=== PATIENT | male | born 1965 | race African-American/Black ===

== ENCOUNTER 2017-02-22 12:16 | Inpatient (IN) | payer OTHER ==
[~2017-02-22] VITALS: Ht 170.2 cm; Wt 69.0 kg
[~2017-02-22 12:16] MED LIST: A/B OTIC15 ML; DILAUDID2 MG PO; ELA25 PO; FENTANYL TR50 MCG/H1 TOP; FERROUS SULFAT325 M2 PO; ONDANSETRON4 M3 PO; PAN PO; PHENERGAN12.5 M1; PRO40 PO; REG10 PO; THO10; XARELTO10 M1 PO; ZOFRAN ODT8 MG PO
[2017-02-22 14:37] LABS: CALCIUM 8.9 mg/dL (8.5-10.1); CARBON DIOXIDE 24.6 mmol/L (21-32); CHLORIDE SERUM 94 mmol/L (98-107); CREATININE SERUM 1.3 mg/dL (0.7-1.3); GFR1 > 60 mL/min; GLUCOSE SERUM 197 mg/dL (74-106); POTASSIUM SERUM 3.4 mmol/L (3.5-5.1); SODIUM SERUM 131 mmol/L (136-145)
[2017-02-22 14:42] LABS: ALBUMIN 3.9 g/dL (3.4-5.0); ALKALINE PHOSPHATASE 176 U/L (46-116); ALT/SGPT 65 U/L (16-63); AST/SGOT 24 U/L (15-37); BILIRUBIN TOTAL 0.56 mg/dL (0.20-1.00); TOTAL PROTEIN, SERUM 7.4 g/dL (6.4-8.2)
[2017-02-22 14:54] LABS: PLATELET COUNT 227 x10^3mcL (130-400)
[2017-02-22 15:02] LABS: RED CELL DISTRIBUTION WIDTH 23.8 % (11.5-14.5)
[2017-02-22 15:08] LABS: BAND NEUTROPHIL 3 % (0-10); BASOPHIL 0 % (0-2); MONOCYTE 3 % (0-7); SEGMENTED NEUTROPHILS 85 % (37-75)
[2017-02-22 15:09] LABS: rbc morphology (normal/abnorm) ABNORMAL (NORMAL)
[2017-02-22] MEDS ORDERED: KETAMINE PO (15:37)
[2017-02-22] MEDS ORDERED: METHADONE HCL10 MG PO (15:37)
[2017-02-22] MEDS ORDERED: DILAUDID2 MG PO (15:39)
[2017-02-22 16:13] LABS: microscopic required? NO
[2017-02-22 16:30] LABS: UA SPECIFIC GRAVITY <=1.005 (1.005-1.035); urine erythrocyte NEGATIVE (NEGATIVE)
[2017-02-22 17:07] LABS: MAGNESIUM 1.4 mg/dL (1.8-2.4); PHOSPHOROUS 2.2 mg/dL (2.5-4.9)
[2017-02-22 17:08] LABS: CHOLESTEROL/HDL RATIO 2.3
[2017-02-22 17:21] LABS: T3 TOTAL 0.75 ng/mL
[2017-02-22 17:23] VITALS: BP 157/97
[2017-02-22 17:37] VITALS: Ht 170.2 cm; Wt 69.0 kg
[2017-02-22 17:39] LABS: FREE T4 0.93 ng/dL (0.76-1.46); FREE THYROXINE INDEX 2.3 ug/dL (1.4-4.5); T4(THYROXINE) 6.6 ug/dL (4.7-13.3)
[2017-02-22 18:48] LABS: AMPHETAMINE QUAL UR NONE DETECTED (NEG <=1000)
[2017-02-22 21:34] VITALS: BP 127/74
[2017-02-23 06:01] VITALS: BP 139/89
[2017-02-23 10:44] VITALS: BP 141/101
[2017-02-23 12:18] VITALS: BP 141/104
== END 2017-02-23 13:31 | disposition left against medical advice (07) | DRG 243 ==
LOC: ED 12:16 → DU 15:58 → MU 15:58 → DU 17:12 → MU 02-23 08:35
PROVIDERS: Emergency Medicine; ADMIT Family Medicine
DX: K22.0 Achalasia of cardia (principal); N17.0 Acute kidney failure with tubular necrosis; E44.0 Moderate protein-calorie malnutrition; E11.9 Type 2 diabetes mellitus without complications; I10 Essential (primary) hypertension; D63.8 Anemia in other chronic diseases classified elsewhere; F32.9 Major depressive disorder, single episode, unspecified; K21.9 Gastro-esophageal reflux disease without esophagitis; E83.42 Hypomagnesemia; E87.6 Hypokalemia; G89.29 Other chronic pain; G47.00 Insomnia, unspecified; K44.9 Diaphragmatic hernia without obstruction or gangrene; N40.0 Benign prostatic hyperplasia without lower urinary tract symptoms; E87.1 Hypo-osmolality and hyponatremia; Z68.23 Body mass index [BMI] 23.0-23.9, adult; Z79.891 Long term (current) use of opiate analgesic; Z86.718 Personal history of other venous thrombosis and embolism; Z90.49 Acquired absence of other specified parts of digestive tract; Z82.49 Family history of ischemic heart disease and other diseases of the circulatory system; Z88.8 Allergy status to other drugs, medicaments and biological substances
CPT/HCPCS: 80307; 83880; 84439; C9113; J0696; J1170; J2405; J2550; J2765; J3010; J3475; J3480; J7030; Q0092; Q0161

== ENCOUNTER 2017-03-06 06:14 | Emergency (ER) | payer OTHER ==
[~2017-03-06 06:14] MED LIST changes: +KETAMINE PO; +METHADONE HCL10 MG PO
[2017-03-06 07:21] LABS: BASOPHIL % 0.2 % (0-2); PLATELET COUNT 230 x10^3mcL (130-400)
[2017-03-06 07:25] LABS: RED CELL DISTRIBUTION WIDTH 23.6 % (11.5-14.5)
[2017-03-06 07:35] LABS: ALKALINE PHOSPHATASE 178 U/L (46-116); ALT/SGPT 126 U/L (16-63); AMYLASE 81 U/L (25-115); AST/SGOT 52 U/L (15-37); BILIRUBIN TOTAL 0.58 mg/dL (0.20-1.00); CALCIUM 8.6 mg/dL (8.5-10.1); CARBON DIOXIDE 24.7 mmol/L (21-32); CHLORIDE SERUM 100 mmol/L (98-107); CREATININE SERUM 0.9 mg/dL (0.7-1.3); GFR1 > 60 mL/min; GLUCOSE SERUM 128 mg/dL (74-106); LIPASE 254 IU/L (73-393); SODIUM SERUM 136 mmol/L (136-145); TOTAL PROTEIN, SERUM 7.4 g/dL (6.4-8.2)
[2017-03-06 10:49] VITALS: BP 152/97
== END 2017-03-06 10:49 | disposition home or self-care (01) ==
LOC: ED 06:14
PROVIDERS: Emergency Medicine
DX: G89.29 Other chronic pain (principal); R10.9 Unspecified abdominal pain; R11.10 Vomiting, unspecified; Z88.8 Allergy status to other drugs, medicaments and biological substances
CPT/HCPCS: 83880; J0780; J1200; J1630; J2765; J3010; J3230; J3480; J3490; J7030

== ENCOUNTER 2017-04-21 14:40 | Inpatient (IN) | payer OTHER ==
[~2017-04-21] VITALS: Ht 170.2 cm; Wt 69.9 kg
[~2017-04-21 14:40] MED LIST changes: +DILAUDID2 MG IV; +KETAMINE IV; -KETAMINE PO; +METHADONE HCL10 MG IV; -METHADONE HCL10 MG PO
--- NOTE | 2017-04-21 14:44 | NUR ---
PT C/O RUQ ABD PAIN. [facility] NURSE ADVISED TO BE SEEN IN ED DUE TO LOW BP, LETHARGY AND ABD PAIN. PT HAS PICC LINE TO RT AC. PATENT. NO S/S OF INFECTION NOTED. DR. BURNS AT BEDSIDE FOR MSE. NO ABD DISTENTION NOTED. PT GUARDED TO RUQ ABD. COMFORT MEASURES IMPLEMENTED. CALL LIGHT W/IN REACH. WILL CONTINUE TO MONITOR.
[2017-04-21 15:22] LABS: microscopic required? NO
[2017-04-21 15:36] LABS: CALCIUM 8.5 mg/dL (8.5-10.1); CARBON DIOXIDE 25.2 mmol/L (21-32); CREATININE SERUM 1.4 mg/dL (0.7-1.3); POTASSIUM SERUM 3.2 mmol/L (3.5-5.1)
[2017-04-21 15:37] LABS: PLATELET COUNT 162 x10^3mcL (130-400)
[2017-04-21 15:39] LABS: urine erythrocyte NEGATIVE (NEGATIVE)
--- NOTE | 2017-04-21 15:39 | NUR ---
MEDICATED ORDERED. PLEASE SEE EMR.
[2017-04-21 15:41] LABS: ALBUMIN 3.6 g/dL (3.4-5.0); BILIRUBIN TOTAL 0.3 mg/dL (0.20-1.00); TOTAL PROTEIN, SERUM 6.9 g/dL (6.4-8.2)
[2017-04-21 15:43] LABS: RED CELL DISTRIBUTION WIDTH 24.2 % (11.5-14.5)
[2017-04-21 15:54] LABS: BASOPHIL 1 % (0-2); MONOCYTE 9 % (0-7); SEGMENTED NEUTROPHILS 66 % (37-75); rbc morphology (normal/abnorm) ABNORMAL (NORMAL)
--- NOTE | 2017-04-21 17:11 | NUR ---
PT MEDICATED ORDERED BY BINTA TRAN. PLEASE SEE EMR.
--- NOTE | 2017-04-21 17:21 | NUR ---
REPORT GIVEN TO BINTA MELO FOR CONTINUATION OF CARE PRIMARY RN.
--- NOTE | 2017-04-21 17:23 | NUR ---
REPORT GIVEN TO BINTA MELO FOR CONTINUATION OF CARE PRIMARY RN.
--- NOTE | 2017-04-21 17:45 | NUR ---
PT ARRIVED ON THE UNIT VIA GUERNEY, ESCORTED BY ER STAFF, WITH IV FLUIDS INFUSING @100 ML/HR. PT IS A+OX4, COMPLAINING OF NAUSEA AND PAIN 07/25.
--- NOTE | 2017-04-21 17:54 | NUR ---
PT TRANSFERED VIA GURNEY ACCOMPANIED BY NURSE AND EMT. PAINTING SUPERVISOR ATTACHED. VSS. RESPS E/U. NO S/S OF DISTRESS NOTED.
--- NOTE | 2017-04-21 17:54 | NUR ---
BINTA MELO NOTIFIED OF CRITICAL RESULT OF LACTIC ACID.
--- NOTE | 2017-04-21 18:11 | NUR ---
PT COMPLAINING OF 9/10 PAIN AND NAUSEA. ZOFRAN AND NAUSEA GIVEN.
[2017-04-21 18:13] VITALS: BP 137/90
[2017-04-21 18:38] LABS: FREE T4 1.25 ng/dL (0.76-1.46); FREE THYROXINE INDEX 3.7 ug/dL (1.4-4.5); T4(THYROXINE) 10.1 ug/dL (4.7-13.3)
[2017-04-21 18:41] LABS: CK-MB 0.8 ng/mL (0-3.6)
[2017-04-21 18:47] LABS: MAGNESIUM 1.8 mg/dL (1.8-2.4); PHOSPHOROUS 3.9 mg/dL (2.5-4.9)
[2017-04-21 18:51] LABS: T3 TOTAL 1.11 ng/mL
[2017-04-21 19:06] LABS: CHOLESTEROL/HDL RATIO 2.5
--- NOTE | 2017-04-21 19:43 | NUR ---
RECEIVED PT FROM AM NURSE IN NO ACUTE DISTRESS, A/OX4. TELE #5 SR HR 87, PULSES PALPABLE , NO EDEMA NOTED. LUNGS CLEAR ON RA. BS ACTIVE X4 QUADRANTS. REPORTS ABD PAIN, WILL MEDICATE PER EMAR, VOIDS FREELY, AMBULATORY, SKIN WARM DRY AND INTACT, PICC LINE TO RAC RECEIVING NS AT 100 ML/HR, ALL PORTS PATENT, BED IN LOWEST POSITION, CALL LIGHT INSTRUCTIONS REINFORCED, WILL CONT TO MONITOR.
[2017-04-21 19:56] LABS: AMPHETAMINE QUAL UR NONE DETECTED (NEG <=1000)
--- NOTE | 2017-04-21 20:35 | NUR ---
C/O ABD PAIN7/10, DILAUDID ADMINSTERED PRESCRIBED, WILL CONT TO MONITOR.
[2017-04-21 20:52] LABS: CALCIUM 8.1 mg/dL (8.5-10.1); CARBON DIOXIDE 29.1 mmol/L (21-32); CHLORIDE SERUM 102 mmol/L (98-107); CREATININE SERUM 1.1 mg/dL (0.7-1.3); GFR1 > 60 mL/min; GLUCOSE SERUM 88 mg/dL (74-106); POTASSIUM SERUM 3.6 mmol/L (3.5-5.1); SODIUM SERUM 137 mmol/L (136-145)
--- NOTE | 2017-04-21 21:33 | NUR ---
C/O NAUSEA, PHENERGAN ADMINISTERED PRESCRIBED, WILL CONT TO MONITOR..
[2017-04-21 21:48] VITALS: BP 120/69
--- NOTE | 2017-04-21 23:33 | NUR ---
C/O ABD PAIN 8/10 AND NAUSEA, DILAUDID AND ZOFRAN ADMINISTERED PRESCRIBED, WILL CONT TO MONITOR.
[2017-04-22 05:41] VITALS: BP 131/94
--- NOTE | 2017-04-22 06:01 | NUR ---
REMAINS IN STABLE CONDITION, MEDICATED FOR PAIN THROUGHOUT SHIFT PRESCRIBED, ALL NEEDS MET AND ATTENDED TO, WILL CONT TO MONITOR AND ENDORSE ALL CARE TO ONCOMING NURSE.
[2017-04-22 06:07] LABS: BASOPHIL % 1.5 % (0-2); PLATELET COUNT 151 x10^3mcL (130-400)
[2017-04-22 06:37] LABS: RED CELL DISTRIBUTION WIDTH 24.4 % (11.5-14.5)
[2017-04-22 06:57] LABS: SODIUM SERUM 141 mmol/L (136-145)
[2017-04-22 07:00] LABS: CALCIUM 6.3 mg/dL (8.5-10.1); CARBON DIOXIDE 21.7 mmol/L (21-32); CHLORIDE SERUM 110 mmol/L (98-107); CREATININE SERUM 0.7 mg/dL (0.7-1.3); GFR1 > 60 mL/min; GLUCOSE SERUM 70 mg/dL (74-106); MAGNESIUM 1.3 mg/dL (1.8-2.4); PHOSPHOROUS 2.5 mg/dL (2.5-4.9); POTASSIUM SERUM 2.8 mmol/L (3.5-5.1)
--- NOTE | 2017-04-22 08:12 | NUR ---
SLEEPING. ON 2L NC PER PT REQUEST. NS INFUSING 100 CC HOUR. NPO EXCEPT MEDS. NEW ORDER FOR CT ABD AND PELVIS WITH IV CONTRAST. SNUFF CONTAINER INSPECTOR CALLED TO SAY HE WOULD BE UP TO SEE PTS PICC LINE. INDEPENDENT W ADL'S. CALL LIGHT WITHIN REACH.
[2017-04-22 08:27] LABS: ovalocyte/elliptocyte 1+; rbc morphology (normal/abnorm) ABNORMAL (NORMAL); target cell (codocyte) 1+
--- NOTE | 2017-04-22 09:00 | NUR ---
DR. MORRISSEY NOTIFIED RE: K+-2.8. RECEIVED KRIDER 04/21/17. WILL ORDER 2ND K RIDER.
[2017-04-22 10:14] VITALS: BP 137/88
[2017-04-22 12:00] VITALS: BP 150/100
--- NOTE | 2017-04-22 13:41 | NUR ---
T.C. TO DR. MORRISSEY. REPORTED TO HIM KETAMINE CAN NOT BE ADMIN ON THE FLOOR. DC'D BY PHARMACIST. PHARMACY DOES NOT CARRY IV METHADONE. CT SCAN WILL NOT USE PRESENT PICC LINE FOR IV CONTRAST PT DOES NOT HAVE DOCUMENTTION SAYING IT CAN WITHSTAND HIGH PRESSUE. PT DOES NOT HAVE THE VEINS FOR EVEN A [address] NEEDS A 20 GAUGE.
[2017-04-22 16:08] LABS: CALCIUM 8.9 mg/dL (8.5-10.1); CARBON DIOXIDE 27.1 mmol/L (21-32); CHLORIDE SERUM 103 mmol/L (98-107); CREATININE SERUM 0.8 mg/dL (0.7-1.3); GFR1 > 60 mL/min; GLUCOSE SERUM 91 mg/dL (74-106); POTASSIUM SERUM 3.9 mmol/L (3.5-5.1); SODIUM SERUM 138 mmol/L (136-145)
[2017-04-22 17:36] VITALS: BP 144/58
--- NOTE | 2017-04-22 18:50 | NUR ---
ALERT AND ORIENTED. BREATHING FREELY ON RA. CONTINUES TO HAVE ABD PAIN N/V SM AMT WATERY FLUID. SEEN BY DR. Ynacy JACOBS TODAY. INDEPENDENT W ADL'S. VSS. CALL LIGHT WITHIN REACH. TAKES METHADONE,KETAMINE,DILAUDID AND THORAZINE AT HOME. HAS NOT BEEN CONTINUED ON THE FLOOR.
--- NOTE | 2017-04-22 19:16 | NUR ---
RECEIVED KATHY AND MAG ZARATEER THIS SHIFT.
--- NOTE | 2017-04-22 19:40 | NUR ---
SEEN IN BED AAOX4. NO RESP DISTRESS NOTED. BREATHING EASY ON ROOM AIR. ABD SOFT AND ROUND. STS PAIN IS TOLERABLE AT THIS TIME. PLAN OF CARE DISCUSSED. ON [facility] SOFT DIET, SANDWICH AND JELLO PROVIDED BY BINTA SONG, WILL CONTINUE TO MONITOR. PICC LINE TO DAYAN NOTED WITH DRSG CDI NS INFUSING AT 100ML/HR. SCD TO BLE MAINTAINED. CALL LIGHT PLACED WITHIN EASY REACH. SIDERAILS UP X2.
--- NOTE | 2017-04-22 20:44 | NUR ---
NOTED NEW ORDER FOR TPN. TPN IS NOT AVAILABLE TONIGHT PER PHARMACYST.
--- NOTE | 2017-04-22 21:03 | NUR ---
STS HAVING ABD PAIN 9/10 ON PAIN SCALE, DILAUDID 2MG IVP SLOWLY GIVEN, NO ADVERSE REACTION NOTED. NOTED PATIENT WAS ABLE TO FINISH 1 JELLO AND SANDWICH. WILL CONTINUE TO MONITOR.
[2017-04-22 21:07] LABS: RED BLOOD CELLS 3.47 M/mm3 (4.52-5.90)
[2017-04-22 21:32] VITALS: BP 139/93
[2017-04-22 21:34] LABS: TOTAL IRON BINDING CAPACITY 271 ug/dL (250-450)
[2017-04-22 21:38] LABS: IRON 26 ug/dL (65-170)
[2017-04-23 05:46] VITALS: BP 142/93
[2017-04-23 06:20] LABS: CALCIUM 8.3 mg/dL (8.5-10.1); CARBON DIOXIDE 27.8 mmol/L (21-32); CHLORIDE SERUM 103 mmol/L (98-107); GFR1 > 60 mL/min; GLUCOSE SERUM 87 mg/dL (74-106); MAGNESIUM 2.2 mg/dL (1.8-2.4); PHOSPHOROUS 3.5 mg/dL (2.5-4.9); POTASSIUM SERUM 3.9 mmol/L (3.5-5.1); SODIUM SERUM 137 mmol/L (136-145)
--- NOTE | 2017-04-23 06:28 | NUR ---
NO RESP DISTRESS THROUGHOUT SHIFT. OFTEN ASKED FOR PAIN MEDICATION EVERY 3 HRS TOGETHER, DILAUDID 2MG IVP GIVEN X4 THROUGHOUT SHIFT. SANDWICH PROVIDED X2 PER PATIENT'S REQUESTED, TOLERATED WELL. IVF NS INFUSING WELL TO DAYAN PICC LINE.
[2017-04-23 06:31] LABS: ALBUMIN 3.1 g/dL (3.4-5.0)
[2017-04-23 07:30] LABS: BASOPHIL % 0.3 % (0-2); PLATELET COUNT 214 x10^3mcL (130-400)
--- NOTE | 2017-04-23 07:30 | NUR ---
RECEIVED REPORT FROM BRANDY GILBERT AT THIS TIME. PATIENT IS RESTING IN BED, AWAKE, ALERT AND O X 4. ON ROOM AIR, NO DISTRESS NOTED, LUNGS CTA. PATIENT STATES HE HAS NAUSEA,(WILL MEDICATE ORDRED), ABD SOFT, ROUND. DENIES URINARY DIFFICULTY, URINAL AT THE BEDSIDE. PICC TO DAYAN IN PLACE, PATENT, INFUSING WELL. CALL LIGHT WITH IN REACH.
[2017-04-23 07:31] LABS: RED CELL DISTRIBUTION WIDTH 24.1 % (11.5-14.5)
[2017-04-23 07:32] LABS: rbc morphology (normal/abnorm) ABNORMAL (NORMAL)
--- NOTE | 2017-04-23 09:37 | NUR ---
PATIENT TAKEN DOWN FOR CT AT THIS TIME
[2017-04-23] MEDS ORDERED: FERG PO (10:04)
[2017-04-23] MEDS ORDERED: VITC PO (10:05)
--- NOTE | 2017-04-23 10:20 | NUR ---
PATIENT RETURNED FROM CT
[2017-04-23 11:36] VITALS: BP 132/100
[2017-04-23] MEDS ORDERED: PHEDML IVP (11:46)
--- NOTE | 2017-04-23 11:50 | NUR ---
PATIENT STATES HE HAS CHRONIC PAIN TO ABD THROBBING 07/25, PATIENT TO BE DISCHARGED. OFFRED LESLIE FOR PAIN PATIENT REFUSED MEDICATION.
[2017-04-23 12:04] VITALS: BP 132/100
--- NOTE | 2017-04-23 12:34 | NUR ---
P.T. NOTES RECEIVED P.T. EVAL ORDER; Pt WAS SEEN AWAKE & ALERT IN BED, SPEAKS [facility], O2 N/C @2LPM IN PLACE, REFUSED TO PARTICIPATE W/ P.T., EXPLAINED BENEFITS OF THERAPY, Pt STATES "I DON'T NEED IT, I AM NOT GETTING UP WITH THERAPY", NURSE AWARE; RECOMMEND TO CANCEL P.T. ORDER DUE TO PATIENT DECLINATION, DOES NOT WANT P.T. AT ALL. ROSSE
== END 2017-04-23 12:50 | disposition home or self-care (01) | DRG 243 ==
LOC: ED 14:40 → DU 16:46 → MU 04-23 06:49
PROVIDERS: Emergency Medicine; ADMIT Family Medicine
DX: K22.0 Achalasia of cardia (principal); N17.0 Acute kidney failure with tubular necrosis; G90.9 Disorder of the autonomic nervous system, unspecified; E86.0 Dehydration; E16.2 Hypoglycemia, unspecified; I10 Essential (primary) hypertension; D64.9 Anemia, unspecified; E87.6 Hypokalemia; Z68.24 Body mass index [BMI] 24.0-24.9, adult; Z86.718 Personal history of other venous thrombosis and embolism; Z90.49 Acquired absence of other specified parts of digestive tract; Z88.8 Allergy status to other drugs, medicaments and biological substances; Z82.49 Family history of ischemic heart disease and other diseases of the circulatory system; Z84.89 Family history of other specified conditions
CPT/HCPCS: 83880; 84439; G0480; J1170; J2270; J2405; J2550; J3010; J3475; J3480; J3490; J7030; Q0092

== ENCOUNTER 2017-05-14 12:18 | Emergency (ER) | payer OTHER ==
[~2017-05-14] VITALS: Ht 170.2 cm; Wt 68.0 kg
[~2017-05-14 12:18] MED LIST changes: +FERG PO; +PHEDML IVP; +VITC PO
[2017-05-14 14:20] VITALS: BP 162/118
== END 2017-05-14 14:36 | disposition home or self-care (01) ==
LOC: ED 12:18
DX: G89.29 Other chronic pain (principal); K30 Functional dyspepsia
CPT/HCPCS: J2270; J2405; J2550

== ENCOUNTER 2017-12-12 03:35 | Inpatient (IN) | payer OTHER ==
[2017-12-12] VITALS (7 sets, daily range): BP systolic 133–186; BP diastolic 85–116; Ht 170.2 cm; Wt 65.5 kg
[~2017-12-12] VITALS: Ht 170.2 cm; Wt 65.5 kg
[2017-12-12 06:20] LABS: BASOPHIL % 0.2 % (0-2); PLATELET COUNT 320 x10^3mcL (130-400)
[2017-12-12 06:39] LABS: CALCIUM 8.7 mg/dL (8.5-10.1); CARBON DIOXIDE 24.2 mmol/L (21-32); CHLORIDE SERUM 94 mmol/L (98-107); GFR1 > 60 mL/min; GLUCOSE SERUM 129 mg/dL (74-106); POTASSIUM SERUM 3.1 mmol/L (3.5-5.1); SODIUM SERUM 134 mmol/L (136-145)
[2017-12-12 06:46] LABS: RED CELL DISTRIBUTION WIDTH 19.4 % (11.5-14.5)
[2017-12-12 06:48] LABS: ALBUMIN 3.8 g/dL (3.4-5.0); ALKALINE PHOSPHATASE 369 U/L (46-116); ALT/SGPT 219 U/L (16-63); AST/SGOT 54 U/L (15-37); BILIRUBIN TOTAL 0.74 mg/dL (0.20-1.00); FREE T4 1.15 ng/dL (0.76-1.46); LIPASE 62 IU/L (73-393); TOTAL PROTEIN, SERUM 8.2 g/dL (6.4-8.2)
[2017-12-12] MEDS ORDERED: PROTONIX40 MG (07:37)
[2017-12-12] MEDS ORDERED: KETAMINE (07:38)
[2017-12-12] MEDS ORDERED: ZOFRAN8 MG (07:39)
[2017-12-12] MEDS ORDERED: DILAUDID2 MG IVP (07:39)
[2017-12-12 09:30] LABS: AMPHETAMINE QUAL UR NONE DETECTED (NEG <=1000)
[2017-12-12 11:38] LABS: T3 TOTAL 0.63 ng/mL
[2017-12-12 12:01] LABS: microscopic required? YES; urine erythrocyte TRACE (NEGATIVE)
[2017-12-12 12:07] LABS: FREE T4 1.17 ng/dL (0.76-1.46); FREE THYROXINE INDEX 3.1 ug/dL (1.4-4.5); T4(THYROXINE) 9.1 ug/dL (4.7-13.3)
[2017-12-12 13:58] LABS: CHOLESTEROL/HDL RATIO 3.9; MAGNESIUM 1.6 mg/dL (1.8-2.4); PHOSPHOROUS 2.6 mg/dL (2.5-4.9)
[2017-12-13] VITALS (9 sets, daily range): BP systolic 88–172; BP diastolic 55–117
[2017-12-13 06:58] LABS: CALCIUM 8.3 mg/dL (8.5-10.1); CARBON DIOXIDE 26.1 mmol/L (21-32); CHLORIDE SERUM 95 mmol/L (98-107); CREATININE SERUM 0.8 mg/dL (0.7-1.3); GFR1 > 60 mL/min; GLUCOSE SERUM 116 mg/dL (74-106); SODIUM SERUM 133 mmol/L (136-145)
[2017-12-13 07:16] LABS: BASOPHIL % 0.2 % (0-2); PLATELET COUNT 262 x10^3mcL (130-400)
[2017-12-13 07:18] LABS: RED CELL DISTRIBUTION WIDTH 19.1 % (11.5-14.5)
[2017-12-13 07:19] LABS: rbc morphology (normal/abnorm) ABNORMAL (NORMAL)
[2017-12-14 05:32] VITALS: BP 154/77
[2017-12-14 07:26] LABS: BASOPHIL % 0.6 % (0-2); PLATELET COUNT 189 x10^3mcL (130-400); RED CELL DISTRIBUTION WIDTH 19.3 % (11.5-14.5)
[2017-12-14 07:36] LABS: CALCIUM 8.3 mg/dL (8.5-10.1); CARBON DIOXIDE 24.5 mmol/L (21-32); CHLORIDE SERUM 99 mmol/L (98-107); CREATININE SERUM 0.8 mg/dL (0.7-1.3); GFR1 > 60 mL/min; GLUCOSE SERUM 100 mg/dL (74-106); MAGNESIUM 2.5 mg/dL (1.8-2.4); PHOSPHOROUS 2.8 mg/dL (2.5-4.9); POTASSIUM SERUM 3.4 mmol/L (3.5-5.1); SODIUM SERUM 134 mmol/L (136-145)
[2017-12-14 13:35] VITALS: BP 159/87
[2017-12-14 17:09] VITALS: BP 150/95
[2017-12-14 17:53] VITALS: BP 150/95
== END 2017-12-14 18:40 | disposition home or self-care (01) | DRG 243 ==
LOC: ED 03:35 → DU 08:47
PROVIDERS: Emergency Medicine; Family Medicine; Internal Medicine Gastroenterology
PROC: 0D748ZZ Dilation of Esophagogastric Junction, Via Natural or Artificial Opening Endoscopic (ICD-10-PCS; principal; 2017-12-14 08:30)
DX: K22.2 Esophageal obstruction (principal); N17.0 Acute kidney failure with tubular necrosis; K21.9 Gastro-esophageal reflux disease without esophagitis; E87.1 Hypo-osmolality and hyponatremia; E87.6 Hypokalemia; G89.4 Chronic pain syndrome; R62.7 Adult failure to thrive; K44.9 Diaphragmatic hernia without obstruction or gangrene; E83.42 Hypomagnesemia; R80.9 Proteinuria, unspecified; D50.9 Iron deficiency anemia, unspecified; E87.8 Other disorders of electrolyte and fluid balance, not elsewhere classified; Z68.28 Body mass index [BMI] 28.0-28.9, adult; Z82.49 Family history of ischemic heart disease and other diseases of the circulatory system; Z90.49 Acquired absence of other specified parts of digestive tract; Z86.718 Personal history of other venous thrombosis and embolism; Z79.01 Long term (current) use of anticoagulants; Z88.8 Allergy status to other drugs, medicaments and biological substances
CPT/HCPCS: 43235; 83880; 84439; C1769; C9113; G0480; J0360; J1170; J2250; J2405; J2550; J3010; J3475; J3480; J3490; J7030; Q0092; Q0161; Q9967